=== PATIENT | female | born 1950 | race Caucasian/White ===

== ENCOUNTER 2018-03-25 14:32 | Emergency (ER) | payer MEDICARE ==
--- NOTE | 2018-03-25 15:14 | RAD ---
LUMBAR SPINE 2 VIEWS: Date: 03/25/18 HISTORY: 68-year-old female with history of L5-S1 pain on flexion. COMPARISON: 06/14/02. FINDINGS: AP and lateral only views of the lumbar spine are performed. Mild dextroscoliosis of the upper lumbar /lower thoracic vertebral column. No fracture or dislocation, or other acute process. IMPRESSION: Mild stable dextroscoliosis. No fracture, dislocation, or other acute process. POS: OFF
== END 2018-03-25 19:19 | disposition home or self-care (01) ==
LOC: SCSER 14:32
DX: M51.27 Other intervertebral disc displacement, lumbosacral region (principal); F32.9 Major depressive disorder, single episode, unspecified; Z79.899 Other long term (current) drug therapy
CPT/HCPCS: 72100

== ENCOUNTER 2022-08-22 10:25 | Inpatient (IN) | payer MEDICARE ==
[2022-08-22 10:59] LABS: #Eosinphils 0.2 thou/uL (0.0-0.7); #Lymphocytes 1.6 thou/uL (1.20-3.40); #Monocytes 0.7 thou/uL (0.11-0.59); #Neutrophils 6.4 thou/uL (1.40-6.50); %Basophils 0.4 % (0.0-1.0); %Eosinophils 1.9 % (0.0-10.0); %Lymphocytes 17.7 % (21.0-51.0); Hemoglobin 12.3 g/dL (12.0-16.0); Mean Corpuscular HGB CONC 34.3 g/dL (32.0-36.0); Mean Corpuscular Hemoglobin 34.1 pg (27.0-31.0); Mean Corpuscular Volume 99.6 fl (78.0-98.0); Mean Platelet Volume 7.2 fL (7.4-10.4); Platelet Count 281 10x3/uL (130-400); RBC Distribution Width 12.3 % (11.5-14.5); White Blood Cell (WBC) Count 8.9 10x3/uL (4.8-10.8)
[2022-08-22 11:20] LABS: ALT (SGPT) 20 U/L (8-55); AST (SGOT) 26 U/L (5-34); Albumin 3.8 g/dL (3.4-4.8); Alkaline Phosphatase 77 U/L (40-110); Anion Gap 14 mmol/L (10-20); BUN (Urea Nitrogen) 9 mg/dL (9.8-20.1); Bilirubin, Total 0.8 mg/dL (0.2-1.2); Calc. Creatinine Clearance 0 mL/min (70-130); Calcium 8.9 mg/dL (7.8-10.44); Carbon Dioxide 24 mmol/L (23-31); Chloride 100 mmol/L (98-107); Estimated GFR 64; Glucose 106 mg/dL (83-110); Potassium 3.3 mmol/L (3.5-5.1); Protein, Total 6.8 g/dL (5.8-8.1); Sodium 135 mmol/L (136-145)
[2022-08-22 11:42] LABS: CKMB 1.6 ng/mL (0-6.6)
[2022-08-22] MEDS ORDERED: Iopamidol-370 76% 500 ML MDV (1 ML CHARGE) ONE (11:46)
[2022-08-22] MEDS ORDERED: Diltiazem 125 MG/25 ML SDV ONE (13:50)
[2022-08-22] MEDS ORDERED: Acetaminophen 325 MG TAB PO PRN (13:51)
[2022-08-22] MEDS ORDERED: Ondansetron PF 4 MG/2 ML Vial IVP PRN (13:51)
[2022-08-22] MEDS ORDERED: Guaifenesin DM 100-10/5 ML UDCUP PO PRN (13:51)
[2022-08-22] MEDS ORDERED: Diltiazem 125 MG in Sodium Chloride 0.9% 100 ML IVPB SCH (14:15)
[2022-08-22] MEDS ORDERED: Potassium Chloride 20 MEQ TAB PO SCH (14:15)
[2022-08-22 14:51] LABS: Magnesium 1.4 mg/dL (1.6-2.6)
[2022-08-22 14:53] LABS: Troponin I 0.029 ng/mL (< 0.028)
[2022-08-22] MEDS ORDERED: cefTRIAXone (ROCEPHIN) 1 GM VIAL ONE (14:55)
[2022-08-22] MEDS ORDERED: Azithromycin 500 MG in Sodium Chloride 0.9% 250 ML 250 ML IVPB SCH (15:00)
[2022-08-22] MEDS ORDERED: Furosemide 20 MG/2 ML VIAL SLOW IVP SCH (15:30)
[2022-08-22] MEDS ORDERED: Magnesium Sulfate 3 GM in Sodium Chloride 0.9% 100 ML IVPB SCH (15:30)
[2022-08-22 18:42] VITALS: BMI 19.1
[2022-08-22] MEDS: Ipratropium/Albuterol 3 ML NEB NEB SCH ×2 (18:45→19:42)
[2022-08-22] MEDS ORDERED: Communication Order-Pharmacy FS SCH (18:48)
[2022-08-22] MEDS ORDERED: Electrolyte Replacement Protocol 1 EACH FS SCH (19:00)
[2022-08-22 20:06] LABS: Troponin I 0.026 ng/mL (< 0.028)
[2022-08-22] MEDS: cefTRIAXone\\ROCEPHIN 1 GM in Sodium Chloride 0.9% 100 ML IVPB SCH (21:05)
[2022-08-22] MEDS: Metoprolol Tartrate 25 MG TAB PO SCH (21:16)
[2022-08-22] MEDS: guaiFENesin ER 600 MG TAB PO SCH (21:16)
[2022-08-22] MEDS ORDERED: Magnesium Sulfate In Water 4 GM in Premix Bag 1 BAG IVPB SCH (22:00)
[2022-08-23 00:18] LABS: SARS-CoV-2 NAA Rapid Test Not Detected (NotDetected)
[2022-08-23 04:42] LABS: #Lymphocytes 0.8 thou/uL (1.20-3.40); #Monocytes 0.6 thou/uL (0.11-0.59); #Neutrophils 7.7 thou/uL (1.40-6.50); %Basophils 0.4 % (0.0-1.0); %Eosinophils 0.4 % (0.0-10.0); %Lymphocytes 8.4 % (21.0-51.0); %Monocytes 6.7 % (0.0-10.0); %Neutrophils 84.1 % (42.0-75.0); Mean Corpuscular Hemoglobin 33.6 pg (27.0-31.0); Mean Corpuscular Volume 98.8 fl (78.0-98.0); Mean Platelet Volume 7.4 fL (7.4-10.4); Platelet Count 277 10x3/uL (130-400); RBC Distribution Width 12.5 % (11.5-14.5); Red Blood Cell (RBC) Count 3.57 mill/uL (4.20-5.40); White Blood Cell (WBC) Count 9.2 10x3/uL (4.8-10.8)
[2022-08-23 04:57] LABS: Phosphorus 3.1 mg/dL (2.3-4.7)
[2022-08-23 04:59] LABS: Anion Gap 16 mmol/L (10-20); BUN (Urea Nitrogen) 9 mg/dL (9.8-20.1); Calc. Creatinine Clearance 49 mL/min (70-130); Calcium 8.6 mg/dL (7.8-10.44); Carbon Dioxide 20 mmol/L (23-31); Chloride 104 mmol/L (98-107); Estimated GFR 73; Glucose 115 mg/dL (83-110); Magnesium 2.7 mg/dL (1.6-2.6); Potassium 3.4 mmol/L (3.5-5.1); Sodium 137 mmol/L (136-145)
[2022-08-23] MEDS: Ipratropium/Albuterol 3 ML NEB NEB SCH ×2 (07:15→11:09)
[2022-08-23] MEDS ORDERED: Potassium Chloride 20 MEQ TAB PO SCH ×2 (08:00→21:15)
[2022-08-23] MEDS: Metoprolol Tartrate 25 MG TAB PO SCH ×2 (09:43→21:16)
[2022-08-23] MEDS: guaiFENesin ER 600 MG TAB PO SCH ×2 (09:43→21:16)
[2022-08-23] MEDS: Dronedarone HCl 400 MG TAB PO SCH ×2 (09:43→16:43)
[2022-08-23] MEDS: cefTRIAXone\\ROCEPHIN 1 GM in Sodium Chloride 0.9% 100 ML IVPB SCH (14:26)
[2022-08-23] MEDS ORDERED: Ipratropium/Albuterol 3 ML NEB NEB PRN (14:30)
[2022-08-23] MEDS ORDERED: Furosemide 40 MG/4 ML VIAL SLOW IVP SCH (15:45)
[2022-08-23] MEDS ORDERED: Loperamide HCl 2 MG CAP PO SCH (19:15)
[2022-08-23 20:14] LABS: Potassium 3.1 mmol/L (3.5-5.1)
[2022-08-23] MEDS: Melatonin 3 MG TAB PO PRN (21:29)
[2022-08-24 01:21] LABS: #Eosinphils 0.1 thou/uL (0.0-0.7); #Lymphocytes 1.3 thou/uL (1.20-3.40); #Monocytes 0.8 thou/uL (0.11-0.59); #Neutrophils 6.4 thou/uL (1.40-6.50); %Basophils 0.3 % (0.0-1.0); %Eosinophils 1.7 % (0.0-10.0); %Lymphocytes 15.1 % (21.0-51.0); %Monocytes 9.4 % (0.0-10.0); %Neutrophils 73.6 % (42.0-75.0); Hemoglobin 10.2 g/dL (12.0-16.0); Mean Corpuscular HGB CONC 34.2 g/dL (32.0-36.0); Mean Corpuscular Volume 99.4 fl (78.0-98.0); Mean Platelet Volume 6.8 fL (7.4-10.4); Platelet Count 264 10x3/uL (130-400); RBC Distribution Width 12.5 % (11.5-14.5); White Blood Cell (WBC) Count 8.6 10x3/uL (4.8-10.8)
[2022-08-24 01:38] LABS: Potassium 3.5 mmol/L (3.5-5.1)
[2022-08-24] MEDS ORDERED: Potassium Chloride 20 MEQ TAB PO SCH (02:00)
[2022-08-24 02:37] LABS: Anion Gap 15 mmol/L (10-20); BUN (Urea Nitrogen) 12 mg/dL (9.8-20.1); Calc. Creatinine Clearance 44 mL/min (70-130); Calcium 8.7 mg/dL (7.8-10.44); Carbon Dioxide 24 mmol/L (23-31); Chloride 101 mmol/L (98-107); Estimated GFR 63; Glucose 120 mg/dL (83-110); Potassium 3.5 mmol/L (3.5-5.1); Sodium 136 mmol/L (136-145)
[2022-08-24] MEDS: Furosemide 40 MG/4 ML VIAL SLOW IVP SCH (10:30)
[2022-08-24] MEDS: Dronedarone HCl 400 MG TAB PO SCH ×2 (10:30→18:27)
[2022-08-24] MEDS: Potassium Chloride 20 MEQ TAB PO SCH (10:30)
[2022-08-24] MEDS: guaiFENesin ER 600 MG TAB PO SCH ×2 (10:30→20:56)
[2022-08-24] MEDS: Metoprolol Tartrate 25 MG TAB PO SCH ×2 (10:30→20:56)
[2022-08-24] MEDS ORDERED: Loperamide HCl 2 MG CAP PO SCH (11:45)
[2022-08-24] MEDS: cefTRIAXone\\ROCEPHIN 1 GM in Sodium Chloride 0.9% 100 ML IVPB SCH (14:38)
[2022-08-24] MEDS: Melatonin 3 MG TAB PO PRN (20:56)
[2022-08-25 04:53] LABS: #Eosinphils 0.3 thou/uL (0.0-0.7); #Lymphocytes 1.5 thou/uL (1.20-3.40); #Monocytes 0.8 thou/uL (0.11-0.59); #Neutrophils 4.8 thou/uL (1.40-6.50); %Basophils 0.2 % (0.0-1.0); %Eosinophils 3.9 % (0.0-10.0); %Lymphocytes 20.2 % (21.0-51.0); %Monocytes 10.6 % (0.0-10.0); %Neutrophils 65.1 % (42.0-75.0); Hemoglobin 10.6 g/dL (12.0-16.0); Mean Corpuscular Hemoglobin 34.7 pg (27.0-31.0); Mean Platelet Volume 7.5 fL (7.4-10.4); Platelet Count 283 10x3/uL (130-400); RBC Distribution Width 12.1 % (11.5-14.5); Red Blood Cell (RBC) Count 3.04 mill/uL (4.20-5.40); White Blood Cell (WBC) Count 7.4 10x3/uL (4.8-10.8)
[2022-08-25 04:55] LABS: Hemoglobin 10.5 g/dL (12.0-16.0); Platelet Count 275 10x3/uL (130-400)
[2022-08-25 05:08] LABS: Anion Gap 14 mmol/L (10-20); BUN (Urea Nitrogen) 11 mg/dL (9.8-20.1); Calc. Creatinine Clearance 45 mL/min (70-130); Calcium 8.5 mg/dL (7.8-10.44); Carbon Dioxide 24 mmol/L (23-31); Chloride 101 mmol/L (98-107); Estimated GFR 69; Glucose 85 mg/dL (83-110); Potassium 3.4 mmol/L (3.5-5.1); Sodium 136 mmol/L (136-145)
[2022-08-25] MEDS ORDERED: Potassium Chloride 20 MEQ TAB PO SCH (08:00)
[2022-08-25] MEDS: guaiFENesin ER 600 MG TAB PO SCH ×2 (09:03→20:51)
[2022-08-25] MEDS: Metoprolol Tartrate 25 MG TAB PO SCH ×2 (09:03→20:51)
[2022-08-25] MEDS: Dronedarone HCl 400 MG TAB PO SCH ×2 (09:03→18:12)
[2022-08-25] MEDS ORDERED: PROPOFOL 200 MG/20 ML VIAL ONE (10:48)
[2022-08-25] MEDS: Furosemide 40 MG/4 ML VIAL SLOW IVP SCH (12:59)
[2022-08-25] MEDS: Potassium Chloride 20 MEQ TAB PO SCH (12:59)
[2022-08-25] MEDS: cefTRIAXone\\ROCEPHIN 1 GM in Sodium Chloride 0.9% 100 ML IVPB SCH (14:37)
[2022-08-25] MEDS ORDERED: Loperamide HCl 2 MG CAP PO SCH (15:15)
[2022-08-25] MEDS: Apixaban 5 MG TAB PO SCH (20:50)
[2022-08-25] MEDS: Melatonin 3 MG TAB PO PRN (20:50)
[2022-08-26 05:22] LABS: #Eosinphils 0.2 thou/uL (0.0-0.7); #Lymphocytes 1.4 thou/uL (1.20-3.40); #Monocytes 0.8 thou/uL (0.11-0.59); #Neutrophils 3.9 thou/uL (1.40-6.50); %Basophils 0.6 % (0.0-1.0); %Eosinophils 3.9 % (0.0-10.0); %Lymphocytes 21.5 % (21.0-51.0); %Monocytes 12.4 % (0.0-10.0); %Neutrophils 61.6 % (42.0-75.0); Mean Corpuscular HGB CONC 34.3 g/dL (32.0-36.0); Mean Corpuscular Hemoglobin 34.4 pg (27.0-31.0); Mean Platelet Volume 7.8 fL (7.4-10.4); Platelet Count 298 10x3/uL (130-400); RBC Distribution Width 12.4 % (11.5-14.5); Red Blood Cell (RBC) Count 3.19 mill/uL (4.20-5.40); White Blood Cell (WBC) Count 6.3 10x3/uL (4.8-10.8)
[2022-08-26 05:27] LABS: Anion Gap 14 mmol/L (10-20); BUN (Urea Nitrogen) 13 mg/dL (9.8-20.1); Calc. Creatinine Clearance 46 mL/min (70-130); Calcium 8.9 mg/dL (7.8-10.44); Carbon Dioxide 24 mmol/L (23-31); Chloride 102 mmol/L (98-107); Estimated GFR 70; Glucose 91 mg/dL (83-110); Potassium 3.5 mmol/L (3.5-5.1); Sodium 136 mmol/L (136-145)
[2022-08-26] MEDS ORDERED: Furosemide 40 MG TAB PO SCH (07:30)
[2022-08-26] MEDS ORDERED: Potassium Chloride 20 MEQ TAB PO SCH (08:00)
[2022-08-26] MEDS ORDERED: Potassium Chloride 10 MEQ TAB PO SCH (08:00)
[2022-08-26 09:01] VITALS: TEMP 97.9
[2022-08-26] MEDS: Dronedarone HCl 400 MG TAB PO SCH (09:51)
[2022-08-26] MEDS: guaiFENesin ER 600 MG TAB PO SCH (09:51)
[2022-08-26] MEDS: Apixaban 5 MG TAB PO SCH (09:51)
[2022-08-26] MEDS: Metoprolol Tartrate 25 MG TAB PO SCH (09:52)
[2022-08-26 12:36] VITALS: BP 130/60
[2022-09-01] MEDS ORDERED: Apixaban 5 MG TAB PO SCH (21:00)
== END 2022-08-26 15:43 | disposition home or self-care (01) | DRG 175 ==
LOC: ERS 10:25 → 2NO 13:13
PROVIDERS: ADMIT Internal Medicine; ATTEND Internal Medicine
PROC: 5A2204Z Restoration of Cardiac Rhythm, Single (ICD-10-PCS; principal; 2022-08-25)
PROC: B24BZZ4 Ultrasonography of Heart with Aorta, Transesophageal (ICD-10-PCS; 2022-08-25)
DX: I26.99 Other pulmonary embolism without acute cor pulmonale (principal); I50.33 Acute on chronic diastolic (congestive) heart failure; J18.9 Pneumonia, unspecified organism; J96.01 Acute respiratory failure with hypoxia; Z20.822 Contact with and (suspected) exposure to COVID-19; I70.0 Atherosclerosis of aorta; I08.1 Rheumatic disorders of both mitral and tricuspid valves; I48.91 Unspecified atrial fibrillation; E83.42 Hypomagnesemia; E87.6 Hypokalemia; R77.8 Other specified abnormalities of plasma proteins; Z85.3 Personal history of malignant neoplasm of breast; Z85.048 Personal history of other malignant neoplasm of rectum, rectosigmoid junction, and anus; Z88.1 Allergy status to other antibiotic agents; Z88.8 Allergy status to other drugs, medicaments and biological substances; Z79.899 Other long term (current) drug therapy; Z90.13 Acquired absence of bilateral breasts and nipples
CPT/HCPCS: 36415; 71045; 71046; 71275; 80048; 80053; 82553; 83735; 83880; 84100; 84145; 84484; 85014; 85018; 85025; 85049; 87040; 87086; 92960; 93005; 93010; 93306; 93312; 94640; 96372; 96374; 96375; 96376; J0456; J0696; J1650; J1940; J2704; J3475; J3490; J7050; J7620; Q9967

== ENCOUNTER 2022-10-31 16:31 | Emergency (ER) | payer MEDICARE ==
[~2022-10-31 16:31] MED LIST: Iopamidol-370 76% 500 ML MDV (1 ML CHARGE) ONE
[2022-10-31 17:59] LABS: Hemoglobin 10.7 g/dL (12.0-16.0); Mean Corpuscular HGB CONC 34.5 g/dL (32.0-36.0); Mean Corpuscular Hemoglobin 31.4 pg (27.0-31.0); Mean Corpuscular Volume 90.9 fl (78.0-98.0); Platelet Count 244 10x3/uL (130-400); RBC Distribution Width 12.6 % (11.5-14.5); Red Blood Cell (RBC) Count 3.41 mill/uL (4.20-5.40); White Blood Cell (WBC) Count 11.1 10x3/uL (4.8-10.8)
[2022-10-31 18:04] LABS: Delete Auto Diff?? YES; Manual Diff?? YES
[2022-10-31 18:25] LABS: ALT (SGPT) 11 U/L (8-55); AST (SGOT) 16 U/L (5-34); Albumin 3.8 g/dL (3.4-4.8); Alkaline Phosphatase 77 U/L (40-110); Anion Gap 12 mmol/L (10-20); BUN (Urea Nitrogen) 14 mg/dL (9.8-20.1); Bilirubin, Total 0.4 mg/dL (0.2-1.2); Calc. Creatinine Clearance 0 mL/min (70-130); Calcium 9.1 mg/dL (7.8-10.44); Carbon Dioxide 23 mmol/L (23-31); Chloride 99 mmol/L (98-107); Estimated GFR 38; Globulin 3.5 g/dL (2.4-3.5); Glucose 117 mg/dL (83-110); Lipase 15 U/L (8-78); Magnesium 1.3 mg/dL (1.6-2.6); Potassium 3.3 mmol/L (3.5-5.1); Protein, Total 7.3 g/dL (5.8-8.1); Sodium 131 mmol/L (136-145)
[2022-10-31 18:32] LABS: Band 27 % (5-11); CellaVision Operator ID LAB.MJL; Eosinophils 1 % (0-10); Lymphocytes 10 % (21-51); Monocytes 11 % (0-10); Neutrophil 50 % (42-75); Ovalocytes SLIGHT = 2-5 cells HPF (0-1); Platelet Adequacy Comment Platelets Normal; Polychromasia SLIGHT = 2-3 cells HPF (0-2); Total Cell Count 100
[2022-10-31] MEDS ORDERED: Potassium Chloride 20 MEQ TAB ONE (19:26)
[2022-10-31] MEDS ORDERED: Magnesium 2 GM/50 ML BAG (IN WATER) ONE (19:26)
== END 2022-10-31 20:25 | disposition home or self-care (01) ==
LOC: ERS 16:31
DX: K52.9 Noninfective gastroenteritis and colitis, unspecified (principal); E87.6 Hypokalemia; E83.42 Hypomagnesemia
CPT/HCPCS: 74177; 80053; 83605; 83690; 83735; 84484; 85025; 93005; 96365; J3475; Q9967

== ENCOUNTER 2023-01-24 09:18 | Inpatient (IN) | payer MEDICARE ==
[2023-01-24 10:08] LABS: #Eosinphils 0.1 thou/uL (0.0-0.7); #Monocytes 0.7 thou/uL (0.11-0.59); #Neutrophils 6.2 thou/uL (1.40-6.50); %Basophils 0.2 % (0.0-1.0); %Eosinophils 0.7 % (0.0-10.0); %Lymphocytes 13.4 % (21.0-51.0); %Monocytes 8.7 % (0.0-10.0); %Neutrophils 76.4 % (42.0-75.0); Hematocrit 30.1 % (36.0-47.0); Hemoglobin 10.1 g/dL (12.0-16.0); Mean Corpuscular HGB CONC 33.6 g/dL (32.0-36.0); Mean Corpuscular Hemoglobin 32.8 pg (27.0-31.0); Mean Corpuscular Volume 97.7 fl (78.0-98.0); Mean Platelet Volume 9.1 fL (7.4-10.4); Platelet Count 297 10x3/uL (130-400); RBC Distribution Width 12.2 % (11.5-14.5); Red Blood Cell (RBC) Count 3.08 mill/uL (4.20-5.40); White Blood Cell (WBC) Count 8.2 10x3/uL (4.8-10.8)
[2023-01-24 10:30] LABS: ALT (SGPT) 112 U/L (8-55); AST (SGOT) 129 U/L (5-34); Albumin 3.9 g/dL (3.4-4.8); Alkaline Phosphatase 104 U/L (40-110); Anion Gap 16 mmol/L (10-20); BUN (Urea Nitrogen) 15 mg/dL (9.8-20.1); Bilirubin, Total 1.2 mg/dL (0.2-1.2); Calc. Creatinine Clearance 0 mL/min (70-130); Calcium 8.6 mg/dL (7.8-10.44); Carbon Dioxide 22 mmol/L (23-31); Chloride 93 mmol/L (98-107); Estimated GFR 38; Globulin 3.3 g/dL (2.4-3.5); Glucose 104 mg/dL (83-110); Lipase 12 U/L (8-78); Potassium 4.1 mmol/L (3.5-5.1); Protein, Total 7.2 g/dL (5.8-8.1); Sodium 127 mmol/L (136-145)
[2023-01-24 10:34] LABS: Troponin I 0.026 ng/mL (< 0.028)
[2023-01-24] MEDS ORDERED: cefTRIAXone (ROCEPHIN) 2 GM VIAL ONE (10:40)
[2023-01-24] MEDS ORDERED: Azithromycin 500 MG VIAL ONE (10:40)
[2023-01-24 11:08] LABS: SARS-CoV-2 NAA Rapid Test Not Detected (NotDetected)
[2023-01-24] MEDS ORDERED: hydrALAZINE 20 MG/ML VIAL ONE (11:15)
[2023-01-24] MEDS ORDERED: Ondansetron ODT 4 MG TAB PO PRN (11:44)
[2023-01-24] MEDS ORDERED: Acetaminophen 325 MG TAB PO PRN (11:44)
[2023-01-24] MEDS ORDERED: HYDROcodone/Acetaminophen 5/325 mg Tablet PO PRN ×2 (11:44)
[2023-01-24 13:34] LABS: Lactic Acid 3.6 mmol/L (0.5-2.2)
[2023-01-24 14:44] VITALS: BMI 16.0
[2023-01-24] MEDS: Sodium Chloride 0.9% 1,000 ML IV SCH (14:55)
[2023-01-24] MEDS: Dronedarone HCl 400 MG TAB PO SCH (17:44)
[2023-01-24] MEDS: Sertraline 100 MG TAB PO SCH (20:29)
[2023-01-24] MEDS: Metoprolol Tartrate 25 MG TAB PO SCH (20:29)
[2023-01-24] MEDS: Apixaban 5 MG TAB PO SCH (20:29)
[2023-01-24] MEDS: Doxycycline 100 MG in Sodium Chloride 0.9% 100 ML IVPB SCH (20:31)
[2023-01-25] MEDS: Sodium Chloride 0.9% 1,000 ML IV SCH (03:06)
[2023-01-25 05:27] LABS: #Eosinphils 0.1 thou/uL (0.0-0.7); #Monocytes 0.8 thou/uL (0.11-0.59); #Neutrophils 4.7 thou/uL (1.40-6.50); %Basophils 0.4 % (0.0-1.0); %Eosinophils 1.6 % (0.0-10.0); %Lymphocytes 15.4 % (21.0-51.0); %Monocytes 12.4 % (0.0-10.0); %Neutrophils 69.8 % (42.0-75.0); Hematocrit 27.2 % (36.0-47.0); Mean Corpuscular HGB CONC 33.1 g/dL (32.0-36.0); Mean Corpuscular Hemoglobin 32.4 pg (27.0-31.0); Mean Corpuscular Volume 97.8 fl (78.0-98.0); Mean Platelet Volume 9.6 fL (7.4-10.4); Platelet Count 252 10x3/uL (130-400); RBC Distribution Width 12.2 % (11.5-14.5); Red Blood Cell (RBC) Count 2.78 mill/uL (4.20-5.40); White Blood Cell (WBC) Count 6.7 10x3/uL (4.8-10.8)
[2023-01-25 05:57] LABS: Anion Gap 16 mmol/L (10-20); BUN (Urea Nitrogen) 15 mg/dL (9.8-20.1); Calc. Creatinine Clearance 38 mL/min (70-130); Calcium 8.2 mg/dL (7.8-10.44); Carbon Dioxide 17 mmol/L (23-31); Chloride 98 mmol/L (98-107); Estimated GFR 57; Glucose 77 mg/dL (83-110); Potassium 3.8 mmol/L (3.5-5.1); Sodium 127 mmol/L (136-145)
[2023-01-25] MEDS ORDERED: Sodium Chloride 0.9% 1,000 ML IV SCH (07:42)
[2023-01-25] MEDS: Doxycycline 100 MG in Sodium Chloride 0.9% 100 ML IVPB SCH ×2 (08:26→20:45)
[2023-01-25] MEDS: Apixaban 5 MG TAB PO SCH ×2 (08:26→20:43)
[2023-01-25] MEDS: Metoprolol Tartrate 25 MG TAB PO SCH ×2 (08:26→20:43)
[2023-01-25] MEDS: Dronedarone HCl 400 MG TAB PO SCH ×2 (08:26→16:04)
[2023-01-25] MEDS ORDERED: Azithromycin 500 MG in Sodium Chloride 0.9% 250 ML 250 ML IVPB SCH (10:00)
[2023-01-25] MEDS: Benzonatate 100 MG CAP PO SCH ×3 (10:12→20:43)
[2023-01-25] MEDS: cefTRIAXone\\ROCEPHIN 1 GM in Sodium Chloride 0.9% 100 ML IVPB SCH (11:44)
[2023-01-25] MEDS: Sertraline 100 MG TAB PO SCH (20:43)
[2023-01-26] MEDS: Apixaban 5 MG TAB PO SCH ×2 (08:27→20:57)
[2023-01-26] MEDS: Benzonatate 100 MG CAP PO SCH ×3 (08:27→20:57)
[2023-01-26] MEDS: Metoprolol Tartrate 25 MG TAB PO SCH ×2 (08:27→20:57)
[2023-01-26] MEDS: Dronedarone HCl 400 MG TAB PO SCH ×2 (08:27→16:45)
[2023-01-26] MEDS: Doxycycline 100 MG in Sodium Chloride 0.9% 100 ML IVPB SCH ×2 (08:27→20:55)
[2023-01-26] MEDS: cefTRIAXone\\ROCEPHIN 1 GM in Sodium Chloride 0.9% 100 ML IVPB SCH (09:43)
[2023-01-26] MEDS ORDERED: Lorazepam 1 MG TAB PO PRN (19:03)
[2023-01-26] MEDS ORDERED: Saccharomyces boulardii 250 MG CAP PO SCH (20:00)
[2023-01-26] MEDS: Sertraline 100 MG TAB PO SCH (20:57)
[2023-01-27 06:33] LABS: #Eosinphils 0.2 thou/uL (0.0-0.7); #Neutrophils 6.2 thou/uL (1.40-6.50); %Basophils 0.2 % (0.0-1.0); %Eosinophils 1.9 % (0.0-10.0); %Lymphocytes 12.6 % (21.0-51.0); %Neutrophils 72.9 % (42.0-75.0); Hematocrit 28.9 % (36.0-47.0); Hemoglobin 9.5 g/dL (12.0-16.0); Mean Corpuscular HGB CONC 32.9 g/dL (32.0-36.0); Mean Corpuscular Hemoglobin 32.6 pg (27.0-31.0); Mean Corpuscular Volume 99.3 fl (78.0-98.0); Mean Platelet Volume 9.3 fL (7.4-10.4); Platelet Count 267 10x3/uL (130-400); RBC Distribution Width 12.7 % (11.5-14.5); Red Blood Cell (RBC) Count 2.91 mill/uL (4.20-5.40); White Blood Cell (WBC) Count 8.4 10x3/uL (4.8-10.8)
[2023-01-27 06:53] LABS: ALT (SGPT) 220 U/L (8-55); AST (SGOT) 112 U/L (5-34); Albumin 3.2 g/dL (3.4-4.8); Alkaline Phosphatase 90 U/L (40-110); Anion Gap 12 mmol/L (10-20); BUN (Urea Nitrogen) 8 mg/dL (9.8-20.1); Bilirubin, Total 0.4 mg/dL (0.2-1.2); Calc. Creatinine Clearance 44 mL/min (70-130); Calcium 8.5 mg/dL (7.8-10.44); Carbon Dioxide 26 mmol/L (23-31); Chloride 102 mmol/L (98-107); Estimated GFR 68; Globulin 2.6 g/dL (2.4-3.5); Glucose 91 mg/dL (83-110); Potassium 3.1 mmol/L (3.5-5.1); Protein, Total 5.8 g/dL (5.8-8.1); Sodium 137 mmol/L (136-145)
[2023-01-27] MEDS: Saccharomyces boulardii 250 MG CAP PO SCH (08:45)
[2023-01-27] MEDS ORDERED: Potassium Chloride 20 MEQ TAB PO SCH (08:45)
[2023-01-27] MEDS: Doxycycline 100 MG in Sodium Chloride 0.9% 100 ML IVPB SCH ×2 (08:46→21:03)
[2023-01-27] MEDS: BuPROPion XL 150 MG ER.TAB PO SCH (08:46)
[2023-01-27] MEDS: Apixaban 5 MG TAB PO SCH ×2 (08:46→21:03)
[2023-01-27] MEDS: Dronedarone HCl 400 MG TAB PO SCH ×2 (08:46→15:39)
[2023-01-27] MEDS: Benzonatate 100 MG CAP PO SCH ×3 (08:46→21:03)
[2023-01-27] MEDS: cefTRIAXone\\ROCEPHIN 1 GM in Sodium Chloride 0.9% 100 ML IVPB SCH (10:52)
[2023-01-27] MEDS: Potassium Chloride 20 MEQ TAB PO SCH (15:39)
[2023-01-27] MEDS ORDERED: Furosemide 20 MG/2 ML VIAL SLOW IVP SCH (17:00)
[2023-01-27] MEDS: Albuterol 200 PUFF (6.7GM INHALER) INH SCH ×2 (18:59→23:37)
[2023-01-27] MEDS: Metoprolol Tartrate 25 MG TAB PO SCH (21:03)
[2023-01-27] MEDS: guaiFENesin/DM ER PO SCH (21:03)
[2023-01-27] MEDS: Sertraline 100 MG TAB PO SCH (21:03)
[2023-01-28 07:15] LABS: ALT (SGPT) 181 U/L (8-55); AST (SGOT) 77 U/L (5-34); Albumin 3.2 g/dL (3.4-4.8); Alkaline Phosphatase 87 U/L (40-110); Anion Gap 12 mmol/L (10-20); BUN (Urea Nitrogen) 8 mg/dL (9.8-20.1); Bilirubin, Total 0.5 mg/dL (0.2-1.2); Calc. Creatinine Clearance 43 mL/min (70-130); Calcium 8.9 mg/dL (7.8-10.44); Carbon Dioxide 27 mmol/L (23-31); Chloride 98 mmol/L (98-107); Estimated GFR 67; Globulin 2.9 g/dL (2.4-3.5); Glucose 87 mg/dL (83-110); Potassium 3.2 mmol/L (3.5-5.1); Protein, Total 6.1 g/dL (5.8-8.1); Sodium 134 mmol/L (136-145)
[2023-01-28] MEDS: Albuterol 200 PUFF (6.7GM INHALER) INH SCH ×2 (07:20→11:49)
[2023-01-28] MEDS ORDERED: Furosemide 40 MG TAB PO SCH (07:30)
[2023-01-28] MEDS: BuPROPion XL 150 MG ER.TAB PO SCH (08:26)
[2023-01-28] MEDS: Benzonatate 100 MG CAP PO SCH ×2 (08:26→15:58)
[2023-01-28] MEDS: Dronedarone HCl 400 MG TAB PO SCH ×2 (08:26→15:58)
[2023-01-28] MEDS: Apixaban 5 MG TAB PO SCH (08:27)
[2023-01-28] MEDS: Doxycycline 100 MG in Sodium Chloride 0.9% 100 ML IVPB SCH (08:27)
[2023-01-28] MEDS: Potassium Chloride 20 MEQ TAB PO SCH ×2 (08:27→15:58)
[2023-01-28] MEDS: guaiFENesin/DM ER PO SCH (08:27)
[2023-01-28] MEDS: Saccharomyces boulardii 250 MG CAP PO SCH (08:27)
[2023-01-28] MEDS: cefTRIAXone\\ROCEPHIN 1 GM in Sodium Chloride 0.9% 100 ML IVPB SCH (10:29)
[2023-01-28 16:34] VITALS: BP 156/76; TEMP 97.8
== END 2023-01-28 18:31 | disposition home or self-care (01) | DRG 193 ==
LOC: SUATTDRO 09:18 → ERS 09:18 → T4-B 11:31
PROVIDERS: ADMIT Family Medicine; ATTEND Family Medicine
DX: J18.9 Pneumonia, unspecified organism (principal); J96.01 Acute respiratory failure with hypoxia; N17.9 Acute kidney failure, unspecified; E87.1 Hypo-osmolality and hyponatremia; I50.32 Chronic diastolic (congestive) heart failure; F32.A Depression, unspecified; I48.91 Unspecified atrial fibrillation; N18.9 Chronic kidney disease, unspecified; E87.6 Hypokalemia; Z20.822 Contact with and (suspected) exposure to COVID-19; R74.01 Elevation of levels of liver transaminase levels; Z86.711 Personal history of pulmonary embolism; Z79.01 Long term (current) use of anticoagulants; Z98.890 Other specified postprocedural states; Z88.1 Allergy status to other antibiotic agents; Z88.8 Allergy status to other drugs, medicaments and biological substances; Z79.899 Other long term (current) drug therapy
CPT/HCPCS: 36415; 71045; 80048; 80053; 83605; 83690; 83880; 84484; 85025; 87040; 93005; 93306; 96365; 96367; 96375; J0360; J0456; J0696; J1940; J3490; J7050

== ENCOUNTER 2024-11-30 13:15 | Outpatient (CLI) | payer MEDICARE | END 2024-11-30 13:16 | disposition home or self-care (01) | LOC: SCSMRI 13:15 | PROVIDERS: ATTEND Internal Medicine Hematology & Oncology | DX: Z23 Encounter for immunization (principal); C50.412 Malignant neoplasm of upper-outer quadrant of left female breast; C21.1 Malignant neoplasm of anal canal; R11.2 Nausea with vomiting, unspecified; M48.04 Spinal stenosis, thoracic region; M51.34 Other intervertebral disc degeneration, thoracic region; G95.89 Other specified diseases of spinal cord; C79.51 Secondary malignant neoplasm of bone; M48.061 Spinal stenosis, lumbar region without neurogenic claudication; M47.816 Spondylosis without myelopathy or radiculopathy, lumbar region; M84.48XA Pathological fracture, other site, initial encounter for fracture | CPT/HCPCS: 72157; 72158 ==

== ENCOUNTER 2024-12-01 15:17 | Emergency (ER) | payer MEDICARE ==
[2024-12-01 16:58] LABS: #Basophils Less than 0.03 10x3/uL (0.0-0.2); #Eosinophils 0.06 10x3/uL (0.0-0.7); #Monocytes 0.66 10x3/uL (0.11-0.59); #Neutrophils 4.53 10x3/uL (1.40-6.50); %Basophils 0.3 % (0.0-1.0); %Eosinophils 0.9 % (0.0-10.0); %Lymphocytes 21.9 % (21.0-51.0); %Monocytes 9.7 % (0.0-10.0); %Neutrophils 66.6 % (42.0-75.0); Hematocrit 35.8 % (36.0-47.0); Hemoglobin 11.7 g/dL (12.0-16.0); Mean Corpuscular Hemoglobin 31.2 pg (27.0-31.0); Mean Corpuscular Volume 95.5 fL (78.0-98.0); Platelet Count 365 10x3/uL (130-400); Red Blood Cell (RBC) Count 3.75 mill/uL (4.20-5.40); White Blood Cell (WBC) Count 6.80 10x3/uL (4.8-10.8)
[2024-12-01 17:27] LABS: ALT (SGPT) 7 U/L (Less than 34); AST (SGOT) 36 U/L (11-34); Albumin 3.5 g/dL (3.1-4.5); Alkaline Phosphatase 185 U/L (40-110); Anion Gap 17 mmol/L (10-20); BUN (Urea Nitrogen) 14 mg/dL (9.8-20.1); Bilirubin, Total 0.7 mg/dL (0.3-1.2); Calc. Creatinine Clearance 0 mL/min (70-130); Calcium 10.3 mg/dL (7.8-10.44); Carbon Dioxide 24 mmol/L (23-31); Chloride 99 mmol/L (98-107); Globulin 4.8 g/dL (2.4-3.5); Glucose 113 mg/dL (83-110); Potassium 4.1 mmol/L (3.5-5.1); Sodium 136 mmol/L (136-145)
[2024-12-01] MEDS ORDERED: Dexamethasone 10 MG/ML VIAL ONE (18:18)
== END 2024-12-01 18:23 | disposition home or self-care (01) ==
LOC: ERS 15:17
DX: M48.56XA Collapsed vertebra, not elsewhere classified, lumbar region, initial encounter for fracture (principal); M48.54XA Collapsed vertebra, not elsewhere classified, thoracic region, initial encounter for fracture; I48.91 Unspecified atrial fibrillation; Z85.3 Personal history of malignant neoplasm of breast; Z86.711 Personal history of pulmonary embolism
CPT/HCPCS: 80053; 85025; 96374; 99283; J1100

== ENCOUNTER 2024-12-08 08:45 | Outpatient (CLI) | payer MEDICARE | END 2024-12-08 08:46 | disposition home or self-care (01) | LOC: PET 08:45 | PROVIDERS: ATTEND Internal Medicine Hematology & Oncology | DX: C21.1 Malignant neoplasm of anal canal (principal); C50.911 Malignant neoplasm of unspecified site of right female breast; Z23 Encounter for immunization; R11.2 Nausea with vomiting, unspecified; C79.51 Secondary malignant neoplasm of bone; C77.3 Secondary and unspecified malignant neoplasm of axilla and upper limb lymph nodes; C79.89 Secondary malignant neoplasm of other specified sites | CPT/HCPCS: 78815; A9552 ==

== ENCOUNTER 2025-01-01 10:44 | Outpatient (CLI) | payer MEDICARE | END 2025-01-01 10:45 | disposition home or self-care (01) | LOC: SCSBT 10:44 | PROVIDERS: ATTEND Internal Medicine Hematology & Oncology | DX: M85.89 Other specified disorders of bone density and structure, multiple sites (principal); C79.51 Secondary malignant neoplasm of bone; M81.0 Age-related osteoporosis without current pathological fracture | CPT/HCPCS: 77080 ==

== ENCOUNTER 2025-01-02 15:23 | Inpatient (IN) | payer MEDICARE ==
[2025-01-02] MEDS ORDERED: Magnesium 2 GM/50 ML BAG (IN WATER) ONE (15:40)
[2025-01-02] MEDS ORDERED: Digoxin 0.5 MG/2 ML AMP ONE ×2 (15:40→17:04)
[2025-01-02] MEDS ORDERED: dilTIAZem 25 MG/5 ML VIAL ONE ×3 (15:40→16:00)
[2025-01-02] MEDS ORDERED: Ondansetron PF 4 MG/2 ML Vial ONE (15:42)
[2025-01-02 15:59] LABS: Hematocrit 40.2 % (36.0-47.0); Hemoglobin 13.1 g/dL (12.0-16.0); Mean Corpuscular Hemoglobin 31.6 pg (27.0-31.0); Mean Corpuscular Volume 97.1 fL (78.0-98.0); Platelet Count 141 10x3/uL (130-400); Red Blood Cell (RBC) Count 4.14 mill/uL (4.20-5.40); White Blood Cell (WBC) Count 2.08 10x3/uL (4.8-10.8)
[2025-01-02 16:09] LABS: ALT (SGPT) 14 U/L (Less than 34); AST (SGOT) 27 U/L (11-34); Albumin 2.6 g/dL (3.1-4.5); Alkaline Phosphatase 135 U/L (40-110); Anion Gap 15 mmol/L (10-20); BUN (Urea Nitrogen) 21 mg/dL (9.8-20.1); Bilirubin, Total 0.4 mg/dL (0.3-1.2); Calc. Creatinine Clearance 0 mL/min (70-130); Calcium 8.6 mg/dL (7.8-10.44); Carbon Dioxide 17 mmol/L (23-31); Chloride 105 mmol/L (98-107); Globulin 3.4 g/dL (2.4-3.5); Glucose 137 mg/dL (83-110); Potassium 3.5 mmol/L (3.5-5.1); Sodium 133 mmol/L (136-145)
[2025-01-02] MEDS ORDERED: Aspirin Chewable 81 MG TAB ONE (16:57)
[2025-01-02 17:48] LABS: Anisocytosis SLIGHT = 6-15 cells HPF (0-5); Burr Cells SLIGHT = 2-5 cells HPF (0-1); Platelet Adequacy Comment Platelets Normal; Polychromasia SLIGHT = 2-3 cells HPF (0-2); Smudge Cells 9.9 %; Toxic Granulation SLIGHT
[2025-01-02] MEDS ORDERED: Melatonin 3 MG TAB PO PRN (18:58)
[2025-01-02] MEDS ORDERED: Senokot S 8.6-50 MG TAB PO PRN (18:58)
[2025-01-02] MEDS ORDERED: Ondansetron PF 4 MG/2 ML Vial IVP PRN (18:58)
[2025-01-02] MEDS: Diltiazem HCl/D5W 125 MG in Premix 1 BAG IVPB SCH (19:00)
[2025-01-02 19:47] VITALS: BMI 17.4
[2025-01-02] MEDS: Metoprolol Tartrate 5 MG (5 mL) VIAL IVP SCH (21:07)
[2025-01-02] MEDS: Apixaban 5 MG TAB PO SCH (21:08)
[2025-01-02] MEDS: Acetaminophen 325 MG TAB PO SCH (21:08)
[2025-01-03] MEDS: Potassium Chloride 20 MEQ in Premix 1 BAG IVPB SCH (00:18)
[2025-01-03] MEDS: Diltiazem HCl/D5W 125 MG in Premix 1 BAG IVPB SCH (01:36)
[2025-01-03 04:07] LABS: Hematocrit 32.9 % (36.0-47.0); Hemoglobin 10.8 g/dL (12.0-16.0); Mean Corpuscular Hemoglobin 32.1 pg (27.0-31.0); Mean Corpuscular Volume 97.9 fL (78.0-98.0); Platelet Count 120 10x3/uL (130-400); Red Blood Cell (RBC) Count 3.36 mill/uL (4.20-5.40); White Blood Cell (WBC) Count 1.56 10x3/uL (4.8-10.8)
[2025-01-03 04:18] LABS: ALT (SGPT) 11 U/L (Less than 34); AST (SGOT) 21 U/L (11-34); Albumin 2.2 g/dL (3.1-4.5); Alkaline Phosphatase 114 U/L (40-110); Anion Gap 13 mmol/L (10-20); BUN (Urea Nitrogen) 15 mg/dL (9.8-20.1); Bilirubin, Total 0.6 mg/dL (0.3-1.2); Calc. Creatinine Clearance 43 mL/min (70-130); Calcium 7.4 mg/dL (7.8-10.44); Carbon Dioxide 18 mmol/L (23-31); Chloride 109 mmol/L (98-107); Globulin 2.6 g/dL (2.4-3.5); Glucose 85 mg/dL (83-110); Magnesium 1.8 mg/dL (1.6-2.6); Potassium 3.7 mmol/L (3.5-5.1); Sodium 136 mmol/L (136-145)
[2025-01-03 04:36] LABS: Burr Cells SLIGHT = 2-5 cells HPF (0-1); Platelet Adequacy Comment Platelets Decreased; Polychromasia SLIGHT = 2-3 cells HPF (0-2); Smudge Cells 10.9 %
[2025-01-03] MEDS: BuPROPion XL 150 MG ER.TAB PO SCH (13:00)
[2025-01-03] MEDS: Magnesium 2 GM/50 ML(in water) 2 GM in Premix 1 BAG IVPB SCH ×2 (14:29)
[2025-01-03] MEDS: Pantoprazole 40 MG DR.TAB PO SCH (18:48)
[2025-01-04 04:44] LABS: Anion Gap 12 mmol/L (10-20); BUN (Urea Nitrogen) 10 mg/dL (9.8-20.1); Calc. Creatinine Clearance 47 mL/min (70-130); Calcium 7.4 mg/dL (7.8-10.44); Carbon Dioxide 20 mmol/L (23-31); Chloride 105 mmol/L (98-107); Glucose 95 mg/dL (83-110); Potassium 3.2 mmol/L (3.5-5.1); Sodium 134 mmol/L (136-145)
[2025-01-04 05:15] LABS: Hematocrit 32.0 % (36.0-47.0); Hemoglobin 10.4 g/dL (12.0-16.0); Mean Corpuscular Hemoglobin 31.4 pg (27.0-31.0); Mean Corpuscular Volume 96.7 fL (78.0-98.0); Platelet Count 137 10x3/uL (130-400); Red Blood Cell (RBC) Count 3.31 mill/uL (4.20-5.40); White Blood Cell (WBC) Count 1.58 10x3/uL (4.8-10.8)
[2025-01-04 05:48] LABS: Burr Cells SLIGHT = 2-5 cells HPF (0-1); Giant Platelets 1.0 % (0-5); Nucleated RBC (Manual Ct) 1 % (0); Platelet Adequacy Comment Platelets Normal; Polychromasia SLIGHT = 2-3 cells HPF (0-2); Smudge Cells 19.4 %
[2025-01-04] MEDS: Pantoprazole 40 MG DR.TAB PO SCH (07:54)
[2025-01-05 03:54] LABS: #Basophils Less than 0.03 10x3/uL (0.0-0.2); #Eosinophils Less than 0.03 10x3/uL (0.0-0.7); #Monocytes 0.20 10x3/uL (0.11-0.59); #Neutrophils 1.19 10x3/uL (1.40-6.50); %Basophils 0.4 % (0.0-1.0); %Eosinophils 0.4 % (0.0-10.0); %Lymphocytes 37.6 % (21.0-51.0); %Monocytes 8.7 % (0.0-10.0); %Neutrophils 52.0 % (42.0-75.0); Hematocrit 30.2 % (36.0-47.0); Hemoglobin 10.1 g/dL (12.0-16.0); Mean Corpuscular Hemoglobin 31.4 pg (27.0-31.0); Mean Corpuscular Volume 93.8 fL (78.0-98.0); Platelet Count 146 10x3/uL (130-400); Red Blood Cell (RBC) Count 3.22 mill/uL (4.20-5.40); White Blood Cell (WBC) Count 2.29 10x3/uL (4.8-10.8)
[2025-01-05 04:09] LABS: Anion Gap 9 mmol/L (10-20); BUN (Urea Nitrogen) 8 mg/dL (9.8-20.1); Calc. Creatinine Clearance 50 mL/min (70-130); Calcium 7.3 mg/dL (7.8-10.44); Carbon Dioxide 20 mmol/L (23-31); Chloride 108 mmol/L (98-107); Glucose 97 mg/dL (83-110); Magnesium 1.7 mg/dL (1.6-2.6); Potassium 3.2 mmol/L (3.5-5.1); Sodium 134 mmol/L (136-145)
[2025-01-05] MEDS: Magnesium 2 GM/50 ML(in water) 2 GM in Premix 1 BAG IVPB SCH (09:05)
[2025-01-06 04:11] LABS: #Basophils Less than 0.03 10x3/uL (0.0-0.2); #Eosinophils Less than 0.03 10x3/uL (0.0-0.7); #Monocytes 0.24 10x3/uL (0.11-0.59); #Neutrophils 1.48 10x3/uL (1.40-6.50); %Basophils 0.4 % (0.0-1.0); %Eosinophils 0.4 % (0.0-10.0); %Lymphocytes 36.7 % (21.0-51.0); %Monocytes 8.6 % (0.0-10.0); %Neutrophils 53.2 % (42.0-75.0); Hematocrit 32.3 % (36.0-47.0); Hemoglobin 10.9 g/dL (12.0-16.0); Mean Corpuscular Hemoglobin 31.5 pg (27.0-31.0); Mean Corpuscular Volume 93.4 fL (78.0-98.0); Platelet Count 175 10x3/uL (130-400); Red Blood Cell (RBC) Count 3.46 mill/uL (4.20-5.40); White Blood Cell (WBC) Count 2.78 10x3/uL (4.8-10.8)
[2025-01-06 04:22] LABS: Anion Gap 11 mmol/L (10-20); BUN (Urea Nitrogen) 8 mg/dL (9.8-20.1); Calc. Creatinine Clearance 53 mL/min (70-130); Calcium 7.4 mg/dL (7.8-10.44); Carbon Dioxide 23 mmol/L (23-31); Chloride 103 mmol/L (98-107); Glucose 88 mg/dL (83-110); Magnesium 1.8 mg/dL (1.6-2.6); Potassium 3.1 mmol/L (3.5-5.1); Sodium 134 mmol/L (136-145)
[2025-01-06] MEDS: Magnesium 2 GM/50 ML(in water) 2 GM in Premix 1 BAG IVPB SCH (08:08)
[2025-01-06] MEDS: Nystatin 500,000 UNITS/5 ML UDCUP SSW SCH (14:35)
[2025-01-06 17:03] VITALS: BP 120/70; TEMP 97.5
[2025-01-07] MEDS ORDERED: Magnesium Oxide 400 MG TAB PO SCH (09:00)
== END 2025-01-06 17:00 | disposition home or self-care (01) | DRG 281 ==
LOC: ERS 15:23 → 2SE 16:58 → PCU 20:53
PROVIDERS: ADMIT Internal Medicine; ATTEND Hospitalist
DX: I48.91 Unspecified atrial fibrillation (principal); C21.0 Malignant neoplasm of anus, unspecified; I21.A1 Myocardial infarction type 2; I50.32 Chronic diastolic (congestive) heart failure; E87.21 Acute metabolic acidosis; C79.51 Secondary malignant neoplasm of bone; E87.1 Hypo-osmolality and hyponatremia; D61.818 Other pancytopenia; C50.919 Malignant neoplasm of unspecified site of unspecified female breast; F32.A Depression, unspecified; E86.0 Dehydration; N18.9 Chronic kidney disease, unspecified; D72.819 Decreased white blood cell count, unspecified; R73.9 Hyperglycemia, unspecified; K20.80 Other esophagitis without bleeding; E87.6 Hypokalemia; R54 Age-related physical debility; M54.9 Dorsalgia, unspecified; R13.10 Dysphagia, unspecified; Z86.711 Personal history of pulmonary embolism; Z90.13 Acquired absence of bilateral breasts and nipples; Z98.890 Other specified postprocedural states; Z88.8 Allergy status to other drugs, medicaments and biological substances; Z79.01 Long term (current) use of anticoagulants; Z79.899 Other long term (current) drug therapy
CPT/HCPCS: 36415; 36416; 71045; 74230; 80048; 80053; 83605; 83735; 83880; 84443; 84484; 85025; 87040; 87081; 87428; 93005; 93306; 96361; 96365; 96374; 96375; J1160; J3475; J3480

== ENCOUNTER 2025-01-17 18:27 | Inpatient (IN) | payer MEDICARE ==
[2025-01-17 19:18] LABS: #Basophils 0.03 10x3/uL (0.0-0.2); #Eosinophils Less than 0.03 10x3/uL (0.0-0.7); #Monocytes 0.99 10x3/uL (0.11-0.59); #Neutrophils 7.69 10x3/uL (1.40-6.50); %Basophils 0.3 % (0.0-1.0); %Eosinophils 0.1 % (0.0-10.0); %Lymphocytes 18.6 % (21.0-51.0); %Monocytes 9.1 % (0.0-10.0); %Neutrophils 70.4 % (42.0-75.0); Hematocrit 38.2 % (36.0-47.0); Hemoglobin 12.0 g/dL (12.0-16.0); Mean Corpuscular Hemoglobin 31.1 pg (27.0-31.0); Mean Corpuscular Volume 99.0 fL (78.0-98.0); Platelet Count 477 10x3/uL (130-400); Red Blood Cell (RBC) Count 3.86 mill/uL (4.20-5.40); White Blood Cell (WBC) Count 10.91 10x3/uL (4.8-10.8)
[2025-01-17 20:00] LABS: ALT (SGPT) 14 U/L (Less than 34); AST (SGOT) 39 U/L (11-34); Albumin 2.7 g/dL (3.1-4.5); Alkaline Phosphatase 191 U/L (40-110); Anion Gap 21 mmol/L (10-20); BUN (Urea Nitrogen) 14 mg/dL (9.8-20.1); Bilirubin, Total 0.8 mg/dL (0.3-1.2); Calc. Creatinine Clearance 0 mL/min (70-130); Calcium 8.2 mg/dL (7.8-10.44); Carbon Dioxide 17 mmol/L (23-31); Chloride 98 mmol/L (98-107); Globulin 3.5 g/dL (2.4-3.5); Glucose 101 mg/dL (83-110); Potassium 4.7 mmol/L (3.5-5.1); Sodium 131 mmol/L (136-145)
[2025-01-17] MEDS ORDERED: Metoprolol Tartrate 5 MG (5 mL) VIAL ONE (21:27)
[2025-01-18] MEDS ORDERED: Acetaminophen 325 MG TAB PO PRN (00:17)
[2025-01-18] MEDS ORDERED: Ondansetron PF 4 MG/2 ML Vial IVP PRN (00:17)
[2025-01-18] MEDS ORDERED: Senokot S 8.6-50 MG TAB PO PRN (00:17)
[2025-01-18] MEDS ORDERED: Melatonin 3 MG TAB PO PRN (00:17)
[2025-01-18] MEDS ORDERED: Calcium Carbonate 500 MG ChewTAB PO PRN (00:17)
[2025-01-18] MEDS ORDERED: Electrolyte Replacement Protocol 1 EACH FS SCH (00:30)
[2025-01-18 03:48] LABS: #Basophils 0.04 10x3/uL (0.0-0.2); #Eosinophils Less than 0.03 10x3/uL (0.0-0.7); #Monocytes 1.02 10x3/uL (0.11-0.59); #Neutrophils 6.35 10x3/uL (1.40-6.50); %Basophils 0.5 % (0.0-1.0); %Eosinophils 0.1 % (0.0-10.0); %Lymphocytes 13.3 % (21.0-51.0); %Monocytes 11.7 % (0.0-10.0); %Neutrophils 72.6 % (42.0-75.0); Hematocrit 32.6 % (36.0-47.0); Hemoglobin 10.5 g/dL (12.0-16.0); Mean Corpuscular Hemoglobin 31.1 pg (27.0-31.0); Mean Corpuscular Volume 96.4 fL (78.0-98.0); Platelet Count 445 10x3/uL (130-400); Red Blood Cell (RBC) Count 3.38 mill/uL (4.20-5.40); White Blood Cell (WBC) Count 8.74 10x3/uL (4.8-10.8)
[2025-01-18 04:07] LABS: Anion Gap 17 mmol/L (10-20); BUN (Urea Nitrogen) 11 mg/dL (9.8-20.1); Calc. Creatinine Clearance 0 mL/min (70-130); Calcium 8.1 mg/dL (7.8-10.44); Carbon Dioxide 17 mmol/L (23-31); Chloride 104 mmol/L (98-107); Glucose 84 mg/dL (83-110); Potassium 4.0 mmol/L (3.5-5.1); Sodium 134 mmol/L (136-145)
[2025-01-18 04:22] VITALS: BMI 16.2
[2025-01-18] MEDS: Diltiazem HCl/D5W 125 MG in Premix 1 BAG IVPB SCH (08:24)
[2025-01-18] MEDS: BuPROPion XL 150 MG ER.TAB PO SCH (08:25)
[2025-01-18] MEDS: Apixaban 5 MG TAB PO SCH (08:25)
[2025-01-18] MEDS: Megestrol Acetate 800 MG/20 ML UDCUP PO SCH (08:25)
[2025-01-18] MEDS: Pantoprazole 40 MG DR.TAB PO SCH (08:25)
[2025-01-18] MEDS: Letrozole 2.5 MG TAB PO SCH (08:39)
[2025-01-18] MEDS: Digoxin 0.5 MG/2 ML AMP SLOW IVP SCH ×2 (12:44→17:47)
[2025-01-18 14:37] VITALS: BMI 16.2
[2025-01-19 04:10] LABS: #Basophils Less than 0.03 10x3/uL (0.0-0.2); #Eosinophils Less than 0.03 10x3/uL (0.0-0.7); #Monocytes 0.76 10x3/uL (0.11-0.59); #Neutrophils 5.11 10x3/uL (1.40-6.50); %Basophils 0.1 % (0.0-1.0); %Eosinophils 0.3 % (0.0-10.0); %Lymphocytes 15.8 % (21.0-51.0); %Monocytes 10.6 % (0.0-10.0); %Neutrophils 71.4 % (42.0-75.0); Hematocrit 32.4 % (36.0-47.0); Hemoglobin 10.3 g/dL (12.0-16.0); Mean Corpuscular Hemoglobin 30.8 pg (27.0-31.0); Mean Corpuscular Volume 97.0 fL (78.0-98.0); Platelet Count 430 10x3/uL (130-400); Red Blood Cell (RBC) Count 3.34 mill/uL (4.20-5.40); White Blood Cell (WBC) Count 7.16 10x3/uL (4.8-10.8)
[2025-01-19 04:34] LABS: Anion Gap 14 mmol/L (10-20); BUN (Urea Nitrogen) 14 mg/dL (9.8-20.1); Calc. Creatinine Clearance 42 mL/min (70-130); Calcium 8.2 mg/dL (7.8-10.44); Carbon Dioxide 18 mmol/L (23-31); Chloride 104 mmol/L (98-107); Glucose 94 mg/dL (83-110); Magnesium 1.8 mg/dL (1.6-2.6); Potassium 3.7 mmol/L (3.5-5.1); Sodium 132 mmol/L (136-145)
[2025-01-19] MEDS: Magnesium 2 GM/50 ML(in water) 2 GM in Premix 1 BAG IVPB SCH (05:40)
[2025-01-19] MEDS: Digoxin 0.125 MG TAB PO SCH (08:23)
[2025-01-19 16:08] VITALS: BP 98/56; TEMP 97.8
== END 2025-01-19 17:40 | disposition home or self-care (01) | DRG 280 ==
LOC: ERS 18:27 → ERHOLD 23:30 → PCU 01-18 05:33
PROVIDERS: ADMIT Internal Medicine; ATTEND Internal Medicine
DX: I48.91 Unspecified atrial fibrillation (principal); E43 Unspecified severe protein-calorie malnutrition; I21.A1 Myocardial infarction type 2; Z68.1 Body mass index [BMI] 19.9 or less, adult; I50.32 Chronic diastolic (congestive) heart failure; I11.0 Hypertensive heart disease with heart failure; K21.9 Gastro-esophageal reflux disease without esophagitis; F41.9 Anxiety disorder, unspecified; F32.A Depression, unspecified; Z88.8 Allergy status to other drugs, medicaments and biological substances; Z88.1 Allergy status to other antibiotic agents; Z98.890 Other specified postprocedural states; Z85.3 Personal history of malignant neoplasm of breast; Z92.21 Personal history of antineoplastic chemotherapy; Z86.711 Personal history of pulmonary embolism; Z82.49 Family history of ischemic heart disease and other diseases of the circulatory system; Z79.01 Long term (current) use of anticoagulants; Z79.899 Other long term (current) drug therapy
CPT/HCPCS: 36415; 71045; 80048; 83605; 83735; 84484; 85025; 87040; 93005; 94760; 96365; 96366; 96375; J1160; J3475

== ENCOUNTER 2025-02-14 19:54 | Inpatient (IN) | payer MEDICARE ==
[2025-02-14 21:15] LABS: #Basophils 0.06 10x3/uL (0.0-0.2); #Eosinophils 0.32 10x3/uL (0.0-0.7); #Monocytes 1.03 10x3/uL (0.11-0.59); #Neutrophils 8.44 10x3/uL (1.40-6.50); %Basophils 0.5 % (0.0-1.0); %Eosinophils 2.7 % (0.0-10.0); %Lymphocytes 13.5 % (21.0-51.0); %Monocytes 8.7 % (0.0-10.0); %Neutrophils 71.4 % (42.0-75.0); Hematocrit 32.8 % (36.0-47.0); Hemoglobin 10.8 g/dL (12.0-16.0); Mean Corpuscular Hemoglobin 30.7 pg (27.0-31.0); Mean Corpuscular Volume 93.2 fL (78.0-98.0); Platelet Count 489 10x3/uL (130-400); Red Blood Cell (RBC) Count 3.52 mill/uL (4.20-5.40); White Blood Cell (WBC) Count 11.82 10x3/uL (4.8-10.8)
[2025-02-14 21:30] LABS: INR-International Normal Ratio 1.9; Prothrombin Time 21.6 sec (12.0-14.7)
[2025-02-14 21:31] LABS: PTT 39.5 sec (22.9-36.1)
[2025-02-14 21:39] LABS: ALT (SGPT) 17 U/L (Less than 34); AST (SGOT) 47 U/L (11-34); Albumin 2.6 g/dL (3.1-4.5); Alkaline Phosphatase 126 U/L (40-110); Anion Gap 19 mmol/L (10-20); BUN (Urea Nitrogen) 36 mg/dL (9.8-20.1); Bilirubin, Total 0.4 mg/dL (0.3-1.2); Calc. Creatinine Clearance 0 mL/min (70-130); Calcium 8.6 mg/dL (7.8-10.44); Carbon Dioxide 19 mmol/L (23-31); Chloride 99 mmol/L (98-107); Globulin 4.3 g/dL (2.4-3.5); Glucose 112 mg/dL (83-110); Potassium 5.8 mmol/L (3.5-5.1); Sodium 131 mmol/L (136-145)
[2025-02-15] MEDS ORDERED: cefTRIAXone (ROCEPHIN) 1 GM VIAL ONE (01:53)
[2025-02-15] MEDS ORDERED: Ondansetron PF 4 MG/2 ML Vial IVP PRN (02:18)
[2025-02-15 02:28] LABS: Bacteria/HPF None Seen HPF (None Seen); CAUTI Indications for Culture Alt mental st,lethar; Glucose, Urine (Dipstick) Normal (Negative); Leukocyte 500 Leu/uL (Negative); Protein, Urine (Dipstick) 50 mg/dL (Neg-Trace); RBC/HPF Greater than 50 HPF (0-3); Specific Gravity, Urine 1.039 (1.002-1.036); WBC/HPF Greater than 50 HPF (0-3)
[2025-02-15 02:30] LABS: Urine Culture Reflex Yes Yes
[2025-02-15 03:07] VITALS: BMI 17.8
[2025-02-15] MEDS: LOKELMA 5 GM PACKET PO SCH (04:01)
[2025-02-15 05:13] LABS: #Basophils 0.04 10x3/uL (0.0-0.2); #Eosinophils 0.28 10x3/uL (0.0-0.7); #Monocytes 0.93 10x3/uL (0.11-0.59); #Neutrophils 7.17 10x3/uL (1.40-6.50); %Basophils 0.4 % (0.0-1.0); %Eosinophils 2.8 % (0.0-10.0); %Lymphocytes 12.3 % (21.0-51.0); %Monocytes 9.3 % (0.0-10.0); %Neutrophils 72.1 % (42.0-75.0); Hematocrit 26.2 % (36.0-47.0); Hemoglobin 8.3 g/dL (12.0-16.0); Mean Corpuscular Hemoglobin 29.7 pg (27.0-31.0); Mean Corpuscular Volume 93.9 fL (78.0-98.0); Platelet Count 429 10x3/uL (130-400); Red Blood Cell (RBC) Count 2.79 mill/uL (4.20-5.40); White Blood Cell (WBC) Count 9.96 10x3/uL (4.8-10.8)
[2025-02-15 05:35] LABS: ALT (SGPT) 12 U/L (Less than 34); AST (SGOT) 34 U/L (11-34); Albumin 2.1 g/dL (3.1-4.5); Alkaline Phosphatase 92 U/L (40-110); Anion Gap 13 mmol/L (10-20); BUN (Urea Nitrogen) 27 mg/dL (9.8-20.1); Bilirubin, Total 0.3 mg/dL (0.3-1.2); CK (CPK) 24 U/L (29-168); Calc. Creatinine Clearance 45 mL/min (70-130); Calcium 8.3 mg/dL (7.8-10.44); Carbon Dioxide 22 mmol/L (23-31); Chloride 101 mmol/L (98-107); Globulin 3.7 g/dL (2.4-3.5); Glucose 91 mg/dL (83-110); Potassium 4.3 mmol/L (3.5-5.1); Sodium 132 mmol/L (136-145)
[2025-02-15 05:37] LABS: Digoxin 1.24 ng/mL (0.8-2.0)
[2025-02-15] MEDS: Digoxin 0.125 MG TAB PO SCH (10:39)
[2025-02-15] MEDS: dilTIAZem ER 60 MG CAP PO SCH (10:40)
[2025-02-15] MEDS: Apixaban 5 MG TAB PO SCH (10:40)
[2025-02-15] MEDS: cefTRIAXone\\ROCEPHIN 1 GM in Sodium Chloride 0.9% 100 ML IVPB SCH (21:28)
[2025-02-16 05:02] LABS: #Basophils 0.03 10x3/uL (0.0-0.2); #Eosinophils 0.26 10x3/uL (0.0-0.7); #Monocytes 0.69 10x3/uL (0.11-0.59); #Neutrophils 6.77 10x3/uL (1.40-6.50); %Basophils 0.3 % (0.0-1.0); %Eosinophils 2.9 % (0.0-10.0); %Lymphocytes 10.0 % (21.0-51.0); %Monocytes 7.8 % (0.0-10.0); %Neutrophils 76.2 % (42.0-75.0); Hematocrit 26.5 % (36.0-47.0); Hemoglobin 8.4 g/dL (12.0-16.0); Mean Corpuscular Hemoglobin 30.3 pg (27.0-31.0); Mean Corpuscular Volume 95.7 fL (78.0-98.0); Platelet Count 385 10x3/uL (130-400); Red Blood Cell (RBC) Count 2.77 mill/uL (4.20-5.40); White Blood Cell (WBC) Count 8.89 10x3/uL (4.8-10.8)
[2025-02-16 05:20] LABS: ALT (SGPT) 10 U/L (Less than 34); AST (SGOT) 24 U/L (11-34); Albumin 2.0 g/dL (3.1-4.5); Alkaline Phosphatase 82 U/L (40-110); Anion Gap 14 mmol/L (10-20); BUN (Urea Nitrogen) 16 mg/dL (9.8-20.1); Bilirubin, Total 0.3 mg/dL (0.3-1.2); Calc. Creatinine Clearance 56 mL/min (70-130); Calcium 8.3 mg/dL (7.8-10.44); Carbon Dioxide 17 mmol/L (23-31); Chloride 106 mmol/L (98-107); Globulin 3.7 g/dL (2.4-3.5); Glucose 83 mg/dL (83-110); Potassium 4.1 mmol/L (3.5-5.1); Sodium 133 mmol/L (136-145)
[2025-02-17 05:20] LABS: #Basophils Less than 0.03 10x3/uL (0.0-0.2); #Eosinophils 0.26 10x3/uL (0.0-0.7); #Monocytes 0.56 10x3/uL (0.11-0.59); #Neutrophils 5.84 10x3/uL (1.40-6.50); %Basophils 0.3 % (0.0-1.0); %Eosinophils 3.4 % (0.0-10.0); %Lymphocytes 10.4 % (21.0-51.0); %Monocytes 7.3 % (0.0-10.0); %Neutrophils 76.0 % (42.0-75.0); Hematocrit 27.3 % (36.0-47.0); Hemoglobin 8.4 g/dL (12.0-16.0); Mean Corpuscular Hemoglobin 29.3 pg (27.0-31.0); Mean Corpuscular Volume 95.1 fL (78.0-98.0); Platelet Count 422 10x3/uL (130-400); Red Blood Cell (RBC) Count 2.87 mill/uL (4.20-5.40); White Blood Cell (WBC) Count 7.68 10x3/uL (4.8-10.8)
[2025-02-17 05:45] LABS: ALT (SGPT) 9 U/L (Less than 34); AST (SGOT) 24 U/L (11-34); Albumin 2.0 g/dL (3.1-4.5); Alkaline Phosphatase 84 U/L (40-110); Anion Gap 15 mmol/L (10-20); BUN (Urea Nitrogen) 15 mg/dL (9.8-20.1); Bilirubin, Total 0.3 mg/dL (0.3-1.2); Calc. Creatinine Clearance 58 mL/min (70-130); Calcium 8.5 mg/dL (7.8-10.44); Carbon Dioxide 17 mmol/L (23-31); Chloride 105 mmol/L (98-107); Globulin 3.9 g/dL (2.4-3.5); Glucose 79 mg/dL (83-110); Potassium 3.9 mmol/L (3.5-5.1); Sodium 133 mmol/L (136-145)
[2025-02-17] MEDS: Letrozole 2.5 MG TAB PO SCH (13:34)
[2025-02-18 05:43] LABS: #Basophils 0.03 10x3/uL (0.0-0.2); #Eosinophils 0.28 10x3/uL (0.0-0.7); #Monocytes 0.60 10x3/uL (0.11-0.59); #Neutrophils 4.95 10x3/uL (1.40-6.50); %Basophils 0.4 % (0.0-1.0); %Eosinophils 4.1 % (0.0-10.0); %Lymphocytes 11.9 % (21.0-51.0); %Monocytes 8.8 % (0.0-10.0); %Neutrophils 72.7 % (42.0-75.0); Hematocrit 29.0 % (36.0-47.0); Hemoglobin 8.8 g/dL (12.0-16.0); Mean Corpuscular Hemoglobin 30.0 pg (27.0-31.0); Mean Corpuscular Volume 99.0 fL (78.0-98.0); Platelet Count 428 10x3/uL (130-400); Red Blood Cell (RBC) Count 2.93 mill/uL (4.20-5.40); White Blood Cell (WBC) Count 6.81 10x3/uL (4.8-10.8)
[2025-02-18 06:09] LABS: Anion Gap 15 mmol/L (10-20); BUN (Urea Nitrogen) 11 mg/dL (9.8-20.1); Calc. Creatinine Clearance 60 mL/min (70-130); Calcium 8.5 mg/dL (7.8-10.44); Carbon Dioxide 16 mmol/L (23-31); Chloride 107 mmol/L (98-107); Glucose 79 mg/dL (83-110); Potassium 4.1 mmol/L (3.5-5.1); Sodium 134 mmol/L (136-145)
[2025-02-18] MEDS: Pantoprazole 40 MG DR.TAB PO SCH (09:52)
[2025-02-18] MEDS: Letrozole 2.5 MG TAB PO SCH (09:52)
[2025-02-19 05:16] LABS: #Basophils Less than 0.03 10x3/uL (0.0-0.2); #Eosinophils 0.33 10x3/uL (0.0-0.7); #Monocytes 0.56 10x3/uL (0.11-0.59); #Neutrophils 5.51 10x3/uL (1.40-6.50); %Basophils 0.3 % (0.0-1.0); %Eosinophils 4.4 % (0.0-10.0); %Lymphocytes 11.6 % (21.0-51.0); %Monocytes 7.5 % (0.0-10.0); %Neutrophils 74.2 % (42.0-75.0); Hematocrit 27.9 % (36.0-47.0); Hemoglobin 8.6 g/dL (12.0-16.0); Mean Corpuscular Hemoglobin 29.2 pg (27.0-31.0); Mean Corpuscular Volume 94.6 fL (78.0-98.0); Platelet Count 490 10x3/uL (130-400); Red Blood Cell (RBC) Count 2.95 mill/uL (4.20-5.40); White Blood Cell (WBC) Count 7.43 10x3/uL (4.8-10.8)
[2025-02-19 05:32] LABS: Anion Gap 15 mmol/L (10-20); BUN (Urea Nitrogen) 12 mg/dL (9.8-20.1); Calc. Creatinine Clearance 63 mL/min (70-130); Calcium 8.6 mg/dL (7.8-10.44); Carbon Dioxide 19 mmol/L (23-31); Chloride 106 mmol/L (98-107); Glucose 79 mg/dL (83-110); Potassium 4.0 mmol/L (3.5-5.1); Sodium 136 mmol/L (136-145)
[2025-02-20 05:06] LABS: #Basophils 0.04 10x3/uL (0.0-0.2); #Eosinophils 0.40 10x3/uL (0.0-0.7); #Monocytes 0.61 10x3/uL (0.11-0.59); #Neutrophils 5.33 10x3/uL (1.40-6.50); %Basophils 0.5 % (0.0-1.0); %Eosinophils 5.3 % (0.0-10.0); %Lymphocytes 12.6 % (21.0-51.0); %Monocytes 8.1 % (0.0-10.0); %Neutrophils 71.2 % (42.0-75.0); Hematocrit 32.0 % (36.0-47.0); Hemoglobin 9.7 g/dL (12.0-16.0); Mean Corpuscular Hemoglobin 29.4 pg (27.0-31.0); Mean Corpuscular Volume 97.0 fL (78.0-98.0); Platelet Count 475 10x3/uL (130-400); Red Blood Cell (RBC) Count 3.30 mill/uL (4.20-5.40); White Blood Cell (WBC) Count 7.49 10x3/uL (4.8-10.8)
[2025-02-20 05:11] LABS: Anion Gap 14 mmol/L (10-20); BUN (Urea Nitrogen) 12 mg/dL (9.8-20.1); Calc. Creatinine Clearance 60 mL/min (70-130); Calcium 8.7 mg/dL (7.8-10.44); Carbon Dioxide 19 mmol/L (23-31); Chloride 107 mmol/L (98-107); Glucose 79 mg/dL (83-110); Potassium 4.0 mmol/L (3.5-5.1); Sodium 136 mmol/L (136-145)
[2025-02-20 15:15] VITALS: BP 138/67; TEMP 97.2
== END 2025-02-20 16:15 | disposition home or self-care (01) | DRG 690 ==
LOC: ERS 19:54 → 2NO 02-15 01:48
PROVIDERS: ADMIT Internal Medicine; ATTEND Internal Medicine
PROC: 3E03329 Introduction of Other Anti-infective into Peripheral Vein, Percutaneous Approach (ICD-10-PCS; principal; 2025-02-15)
PROC: 0T9B70Z Drainage of Bladder with Drainage Device, Via Natural or Artificial Opening (ICD-10-PCS; 2025-02-15)
DX: N39.0 Urinary tract infection, site not specified (principal); C79.51 Secondary malignant neoplasm of bone; I48.20 Chronic atrial fibrillation, unspecified; E87.5 Hyperkalemia; E86.0 Dehydration; C50.919 Malignant neoplasm of unspecified site of unspecified female breast; B96.89 Other specified bacterial agents as the cause of diseases classified elsewhere; Z79.01 Long term (current) use of anticoagulants; Z79.899 Other long term (current) drug therapy; Z86.711 Personal history of pulmonary embolism
CPT/HCPCS: 36415; 51702; 51798; 71045; 71275; 74177; 80048; 80053; 80162; 81001; 82533; 82550; 83605; 84484; 85025; 85610; 85730; 86850; 86900; 86901; 87040; 87077; 87086; 93005; 96374; J0696; J7030; Q9967